=== PATIENT | male | born 1955 | race Caucasian/White ===

== ENCOUNTER 2021-01-30 08:39 | Day surgery (SDC) | payer OTHER ==
[2021-01-26 11:59] LABS: Absolute Lymphocytes (CBC) 1.1 K/uL (0.7-4.9); Basophils % 0.5 % (0-1.3); Hematocrit 44.6 % (39.6-49.0); Lymphocytes % 17.1 % (15.3-44.8); MPV 7.9 fL (7.6-11.3); RBC Red Blood Cell Count 4.94 M/uL (4.33-5.43)
--- NOTE | 2021-01-26 12:06 | RAD REPORT ---
EXAM DESCRIPTION: RAD - Chest Pa And Lat (2 Views) - 01/26/2021 12:00 pm CLINICAL HISTORY: PRE-OP COMPARISON: Chest Single View dated 11/22/2015; Chest Single View dated 11/21/2015; Abdomen Pelvis W Contrast dated 01/20/2021 FINDINGS: Lines: None. Lungs: No evidence of edema or pneumonia. Pleural: No significant pleural effusions or pneumothorax. Cardiac: The heart size is within normal limits. Bones: No acute fractures. Other: IMPRESSION: No acute cardiopulmonary disease.
[2021-01-26 12:08] LABS: BUN Blood Urea Nitrogen 12 mg/dL (7-18); Bicarbonate 29 mmol/L (21-32); Glucose Level 92 mg/dL (74-106); Sodium Level 144 mmol/L (136-145)
[2021-01-30] MEDS ORDERED: Ringers Lactate 1,000 ML IV ONE (09:23)
[2021-01-30] MEDS ORDERED: BUPIVACAINE 0.5% PF 10 ML VIAL ONE (11:07)
[2021-01-30] MEDS: BUPIVACAINE 0.5% PF 10 ML VIAL ONE ×2 (11:09→12:01)
[2021-01-30] MEDS: CEFAZOLIN/NS 1gm 1 GM/50 ML BAG ONE ×2 (11:10→11:44)
[2021-01-30] MEDS ORDERED: ACETAMINOPHEN 500 MG TAB ONE (11:27)
[2021-01-30] MEDS ORDERED: CELECOXIB 100 MG CAPSULE ONE (11:27)
[2021-01-30] MEDS ORDERED: propofoL 200 MG/20 ML VIAL IV ONE (11:54)
[2021-01-30] MEDS ORDERED: dexAMETHasone 10 MG/ML VIAL ONE (11:55)
[2021-01-30] MEDS ORDERED: FENTANYL CITR 100 MCG/2 ML ONE (11:55)
[2021-01-30] MEDS ORDERED: MIDAZOLAM HCL 2 MG/2 ML INJ ONE (11:55)
[2021-01-30] MEDS ORDERED: ONDANSETRON 4 MG/2 ML VIAL ONE (11:55)
[2021-01-30] MEDS ORDERED: KETOROLAC 30 MG/ML INJ ONE (11:55)
[2021-01-30] MEDS ORDERED: ROCURONIUM 50 MG/5 ML VIAL IV ONE (11:56)
[2021-01-30] MEDS ORDERED: LIDOCAINE 1% MPF 30 ML VIAL ONE (11:56)
[2021-01-30] MEDS ORDERED: NEOSTIGMINE 1 MG/ML -5 ML ONE (12:57)
[2021-01-30] MEDS ORDERED: GLYCOPYRROLATE 0.2 MG/ML SYR ONE (12:57)
[2021-01-30] MEDS: HYDROMORPHONE HCL 1 MG/ML INJ ONE ×2 (13:10→13:20)
--- NOTE | 2021-01-30 13:20 | OP ---
Date of Procedure: 01/30/2021 Surgeon: Dexter Liz MD Director Of Assessment: CHRISTINE Maharaj. Preoperative Diagnosis: Right inguinal hernia. Postoperative Diagnosis: Right inguinal hernia. Procedure: Repair of right inguinal hernia. Estimated Blood Loss: Minimal. Specimen: Hernia sac and cord lipoma. Findings: As above. Anesthesia: General. Complications: None. Disposition: The patient tolerated the procedure in stable condition and taken to Recovery in good g eneral condition. Procedure In Detail: The patient was brought to the OR and placed in supine position. General anest hesia begun. The patient was prepped and draped in the usual sterile fashion. Marcaine 0.5% was inf iltrated locally in a field block fashion in the right groin. A 15-blade was used to make a 4 cm obl ique incision between the pubic tubercle and the anterior iliac superior spine. Subcutaneous tissues divided. Zac fascia identified and divided. Aponeurosis identified and mobilized inferiorly to expose shelving edge. Then aponeurosis was opened through the external ring. The ilioinguinal nerve identified and retracted out of the field of dissection. Then, cord mobilized and skeletonized. A large indirect hernia sac with cord lipoma identified. It was from the cord structures usi ng high ligation with 2-0 Prolene suture and free hand used to tie off the end and then hernia sac ex cised with the cord lipoma and sent to Pathology. Then Marlex mesh plug placed in the internal ring and secured with a VersaTack stapler. Onlay mesh placed on the inguinal floor, secured medially to t he pubic tubercle, inferiorly to the shelving edge, laterally to each other, superiorly to the conjoi selin tendon and then cord structures and ilioinguinal nerve were placed back in anatomical location. A 2-0 Prolene used to close the aponeurosis, 3-0 chromic used to close the Zac's fascia and then s taples were used to close the skin. Sterile dressing applied. Patient was awakened and taken to Rec overy in good general condition. Discharge Note: The patient will go to Day Surgery and home when stable. Disposition: Home. Condition: Stable. Discharge Instructions: Resume home medications and diet. Activity as tolerated. No heavy lifting. Remove outer dressing in 2 days. Shower. Keep wound clean and dry. Follow up in my office in 1 w lummi. Call for appointment. Tylenol No. 3 one tablet p.o. q.4 p.r.n. pain. Scrotal support and ice pack as ordered. /MODL Voice ID: [id number] Report ID: [id number]
[2021-01-30] MEDS ORDERED: HYDROCODONE/APAP 7.5/325 MG TAB ONE (14:26)
[2021-01-30 17:04] VITALS: TEMP 97.1; O2SAT 99
[2021-01-30 17:05] VITALS: BP 140/70
== END 2021-01-30 15:29 | disposition home or self-care (01) ==
LOC: OR 08:39
PROVIDERS: ATTEND Surgery
PROC: 0YU50JZ Supplement Right Inguinal Region with Synthetic Substitute, Open Approach (ICD-10-PCS; principal; 2021-01-30 10:15)
DX: K40.90 Unilateral inguinal hernia, without obstruction or gangrene, not specified as recurrent (principal); Z20.822 Contact with and (suspected) exposure to COVID-19
CPT/HCPCS: 85025; 80048; 36415; 88302; 71046; 49505; U0003; J2704; J2250; J3010; J1100; J1170; J2710; J0690; J7120; J2405